=== PATIENT | male | born 1990 | race African-American/Black ===

== ENCOUNTER 2016-10-31 13:13 | Emergency (ER) | payer MEDICAID ==
[~2016-10-31] VITALS: Ht 170.2 cm; Wt 84.0 kg
[2016-10-31] MEDS ORDERED: PREDNISONE 20MG TABLET PO STA (18:34)
[2016-10-31] MEDS ORDERED: IPRATROPIUM BROMIDE (0.02%) 0.5MG/2.5ML NEB HHN STA (18:34)
[2016-10-31] MEDS ORDERED: ALBUTEROL (0.083%) 2.5MG/3ML NEB HHN STA (18:34)
[2016-10-31] MEDS ORDERED: TETRACAINE 0.5% OPHTH DROPS 4ML OP ONE (18:45)
[2016-10-31] MEDS ORDERED: BALANCED SALT IRRIG SOLN 15ML IO ONE (18:45)
[2016-10-31] MEDS ORDERED: FLUORESCEIN SODIUM 1MG/STRIP OP ONE (18:45)
[2016-10-31 19:20] VITALS: BP 122/62
[2016-10-31] MEDS ORDERED: GENTAMICIN 0.3% OPHTH DROPS 5ML OP ONE (19:30)
== END 2016-10-31 20:00 | disposition home or self-care (01) ==
LOC: ER 16:52
DX: J45.901 Unspecified asthma with (acute) exacerbation (principal); H10.023 Other mucopurulent conjunctivitis, bilateral; F17.210 Nicotine dependence, cigarettes, uncomplicated
CPT/HCPCS: 71010; 94640; 99283; J7512; J7611